=== PATIENT | female | born 1945 ===

== ENCOUNTER 2022-04-27 06:45 | Day surgery (SDC) | payer MEDICARE ==
[~2022-04-27] VITALS: Ht 170.2 cm; Wt 65.2 kg
[2022-04-27] MEDS ORDERED: IBU800 M1 PO (07:14)
[2022-04-27] MEDS ORDERED: AMIT50 PO (07:15)
[2022-04-27] MEDS ORDERED: LISI20 PO (07:15)
--- NOTE | 2022-04-27 07:21 | NUR ---
04/27/22 0721 Avelina Sauceda PT IN LOWEST POSITION, CALL LIGHT WITHIN REACH.
== END 2022-04-27 08:50 | disposition home or self-care (01) ==
LOC: ORSCSDS 06:45
PROVIDERS: Ophthalmology
PROC: 08DJ3ZZ Extraction of Right Lens, Percutaneous Approach (ICD-10-PCS; principal; 2022-04-27 08:30)
DX: H25.11 Age-related nuclear cataract, right eye (principal); E78.00 Pure hypercholesterolemia, unspecified; I10 Essential (primary) hypertension; Z79.899 Other long term (current) drug therapy
CPT/HCPCS: J2001; J2250; J3010; J7040; V2632